=== PATIENT | male | born 1970 | race Caucasian/White ===

== ENCOUNTER → 2018-01-05 | Outpatient (CLI) | payer OTHER | LOC: COL.CARD 08:00 | DX: R25.1 Tremor, unspecified (principal); G43.909 Migraine, unspecified, not intractable, without status migrainosus ==

== ENCOUNTER 2020-10-21 11:47 | Observation (INO) | payer OTHER ==
[~2020-10-21] VITALS: Ht 188 cm; Wt 99.2 kg
[2020-10-21] VITALS (10 sets, daily range): BP systolic 111–149; BP diastolic 58–79; PULSE 56–75; TEMP 97.6–98.3
[2020-10-21] MEDS ORDERED: LYRICA 75MG CAP75 MG PO (16:26)
[2020-10-21] MEDS ORDERED: LYRICA 25MG CAP25 MG PO (16:27)
[2020-10-21] MEDS ORDERED: EFFEXOR 75M75 MG/TAB PO (16:28)
[2020-10-21] MEDS ORDERED: LIORESAL 1010 MG/TAB PO (16:30)
[2020-10-21] MEDS ORDERED: BUSPAR10 MG PO (16:30)
[2020-10-21] MEDS ORDERED: DEPAKOTE ER 50500 MG PO (16:31)
--- NOTE | 2020-10-21 21:09 | NUR ---
Patient up walking halls. Tolerating well. Denies any pain. Requested his medications around 2200.
[2020-10-22 00:10] VITALS: BP 125/74; PULSE 80; TEMP 98.1
[2020-10-22 04:11] VITALS: BP 122/75; PULSE 78; TEMP 97.9
--- NOTE | 2020-10-22 04:51 | NUR ---
PATIENT SLEEPING WELL. PATIENTS VITALS ARE STABLE AND NO COMPLAINTS OF PAIN.
[2020-10-22 07:19] VITALS: BP 130/83; PULSE 85; TEMP 98.5
--- NOTE | 2020-10-22 09:30 | NUR ---
Patient alert and oriented, answers questions appropriately. See assessment. Groin incision with no drainage noted, gauze in place CDI. No redness noted, no c/o pain at site. Patient ambulating in halls frequently. No c/o at this time.
--- NOTE | 2020-10-22 10:47 | NUR ---
SW met with patient by his bedside to complete intake assessment. Patient currently lives in [place] with [facility] [place] [phone] as care support and EMR. Patient reported that he is independent with ADL'sand that he does currently have a DPOA. Patient reports utilizing a CPAP machine at night, and during naps when he has a migrane, and that his PCP was Dr Brizuela at [facility], however he has recently PCS'ed, and so patient is not sure who his new PCP will be. Patient indicated [facility] [place]. Patient declined home health care services at this time. He did indicated that his family was working on hiring a [place]. We discussed community resources avaialble.
[2020-10-22] MEDS ORDERED: BACTRIM DS 8001 TAB PO (11:17)
[2020-10-22 12:22] VITALS: BP 122/74; PULSE 78; TEMP 98.3
--- NOTE | 2020-10-22 13:38 | NUR ---
Discharge instructions reviewed patient patient, verbalized understanding. Discharged ambulatory to auto/home with spouse at 1320.
== END 2020-10-22 13:20 | disposition home or self-care (01) ==
LOC: SURG 11:47
PROVIDERS: ADMIT Urology
DX: N49.2 Inflammatory disorders of scrotum (principal); G43.909 Migraine, unspecified, not intractable, without status migrainosus; F17.210 Nicotine dependence, cigarettes, uncomplicated; G47.33 Obstructive sleep apnea (adult) (pediatric); F32.9 Major depressive disorder, single episode, unspecified; F41.9 Anxiety disorder, unspecified; Z79.899 Other long term (current) drug therapy
CPT/HCPCS: J1100; J2250; J2405; J2704

== ENCOUNTER 2021-07-31 08:40 | Outpatient (CLI) | payer OTHER ==
[2021-07-31] VITALS (23 sets, daily range): BP systolic 96–129; BP diastolic 67–101; PULSE 56–78
[~2021-07-31] VITALS: Ht 188 cm; Wt 106.0 kg
[~2021-07-31 08:40] MED LIST: BACTRIM DS 8001 TAB PO; BUSPAR10 MG PO; CAFERGOT 100 MG1 TAB PO; DEPAKOTE ER 50500 MG PO; EFFEXOR 75M75 MG/TAB PO; EFFEXOR100 MG PO; LIORESAL 1010 MG/TAB PO; LYRICA 100MG C100 M1 PO; LYRICA 25MG CAP25 MG PO; LYRICA 75MG CAP75 MG PO
[2021-07-31] MEDS ORDERED: RT SPIRIVA18 MCG IH (09:09)
--- NOTE | 2021-07-31 10:15 | NUR ---
Pt to ct per ambulation. Pt into room and positioned in prone position. Monitors applied and O2 on at 2l/nc.
--- NOTE | 2021-07-31 10:30 | NUR ---
Dr Arandas into room to talk with pt after viewing images.
--- NOTE | 2021-07-31 11:00 | NUR ---
Specimen obtained by Dr Lyons and placed in formalin. Specimen labeled.
== END 2021-07-31 14:05 | disposition home or self-care (01) ==
LOC: COL.RAD 08:40
DX: R91.8 Other nonspecific abnormal finding of lung field (principal)
CPT/HCPCS: 32107